=== PATIENT | female | born 1985 | race Caucasian/White ===

== ENCOUNTER 2018-02-01 17:33 | Emergency (ER) | payer MEDICAID ==
[~2018-02-01] VITALS: Ht 162.6 cm; Wt 63.6 kg
[~2018-02-01 17:33] MED LIST: NO HOME MEDS; ONDA8TAB9 PO
[2018-02-01 17:45] VITALS: BP 116/76
[2018-02-01] MEDS ORDERED: TOBR5DRO2 RIGHTEYE (18:25)
== END 2018-02-01 18:33 | disposition home or self-care (01) ==
LOC: ER 17:34
DX: H01.001 Unspecified blepharitis right upper eyelid (principal); H10.9 Unspecified conjunctivitis; G43.909 Migraine, unspecified, not intractable, without status migrainosus; Z86.14 Personal history of Methicillin resistant Staphylococcus aureus infection; F12.90 Cannabis use, unspecified, uncomplicated; Z91.030 Bee allergy status; Z79.899 Other long term (current) drug therapy; Z56.0 Unemployment, unspecified
CPT/HCPCS: 99283

== ENCOUNTER 2018-08-09 13:11 | Emergency (ER) | payer MEDICAID ==
[~2018-08-09] VITALS: Ht 162.6 cm; Wt 67.8 kg
[~2018-08-09 13:11] MED LIST changes: +IBUP-1985 PO; +TOBR5DRO2 RIGHTEYE
[2018-08-09 13:49] LABS: BASOPHILS % (AUTO) 0.3 % (0-1); EOSINOPHILS # (AUTO) 0.3 X10'3 (0-0.9); EOSINOPHILS % (AUTO) 2.4 % (0-6); HEMATOCRIT 35.9 % (35.0-45.0); HEMOGLOBIN 11.7 g/dl (12.0-16.0); LYMPHOCYTES # (AUTO) 1.9 X10'3 (1.1-4.8); LYMPHOCYTES % (AUTO) 15.7 % (21-51); MEAN CORPUSCULAR HEMOGLOBIN 26.1 PG (27.0-31.0); MEAN CORPUSCULAR HGB CONC 32.7 g/dL (33.0-36.5); MEAN CORPUSCULAR VOLUME 79.9 FL (78-98); MEAN PLATELET VOLUME 7.3 FL (7.4-10.4); MONOCYTES # (AUTO) 0.9 X10'3 (0-0.9); MONOCYTES % (AUTO) 7.1 % (2-12); NEUTROPHILS # (AUTO) 9.2 X10'3 (1.8-7.7); NEUTROPHILS % (AUTO) 74.5 % (42-75); PLATELET COUNT 569 X10'3 (140-440); RED BLOOD COUNT 4.49 X10'6 (4.20-5.60); RED CELL DISTRIBUTION WIDTH 16.5 % (11.5-14.5); WHITE BLOOD COUNT 12.3 X10'3 (4.5-11.0)
[2018-08-09 14:00] LABS: PROTHROMBIN TIME 10.2 SECONDS (9.0-12.0)
[2018-08-09 14:04] LABS: ALANINE AMINOTRANSFERASE 14 U/L (12-78); ALBUMIN 3.8 G/DL (3.4-5.0); ALBUMIN/GLOBULIN RATIO 0.9 (1.1-1.5); ALKALINE PHOSPHATASE 69 IU/L (46-116); ANION GAP 11 (8-16); ASPARTATE AMINO TRANSFERASE 10 U/L (10-37); BILIRUBIN,TOTAL 0.2 MG/DL (0.1-1.0); BLOOD UREA NITROGEN 13 MG/DL (7-18); BUN/CREATININE RATIO 17.1 (6.6-38.0); CHLORIDE 102 MMOL/L (99-107); CREATININE 0.76 MG/DL (0.40-0.90); GLUCOSE 98 MG/DL (70-104); POTASSIUM 3.7 MMOL/L (3.5-5.1); SODIUM 139 MMOL/L (135-145); TOTAL CARBON DIOXIDE 26.3 MMOL/L (24-32); TOTAL PROTEIN 7.9 G/DL (6.4-8.2); eGFR 88 ML/MIN
[2018-08-09 14:09] LABS: CLARITY,URINE SLIGHTLY CLOUDY (Clear); COLOR,URINE STRAW (Yellow); GLUCOSE, URINE NEGATIVE (Neg); KETONES,URINE NEGATIVE (Neg); LEUKOCYTE ESTERASE ,URINE MODERATE (Neg); NITRITES, URINE NEGATIVE (Neg); OCCULT BLOOD,URINE NEGATIVE (Neg); PROTEIN,URINE NEGATIVE (Neg); UA COLLECTION TYPE CLN CATCH MIDSTREAM; URINE HCG NEGATIVE (NEG); UROBILINOGEN,URINE 0.2 E.U/dL (0.2-1.0)
[2018-08-09 14:19] LABS: MUCUS STRANDS NONE SEEN /LPF (Neg); SQUAMOUS EPITHELIAL CELL,UR MANY /LPF (FEW); TRANSITIONAL EPI CELLS,URINE FEW /HPF
[2018-08-09 14:21] LABS: BACTERIA,URINE 3+ /HPF (Neg); RBC,URINE 0-2 /HPF (0-2)
[2018-08-09] MEDS ORDERED: ibuprofen 200mg tablet PO ONE (14:50)
[2018-08-09] MEDS ORDERED: HYDROcodone/acetaminophen 10/325mg tab PO ONE (14:50)
--- NOTE | 2018-08-09 15:43 | NUR ---
pelvic exam set up and assisted Dr. Shah with exam. Patient tolerated well.
[2018-08-09] MEDS ORDERED: METR-159 PO (16:35)
[2018-08-09] MEDS ORDERED: CefTRIAXone 250MG IM Kit w/LIDOcaine IM ONE (16:35)
[2018-08-09] MEDS ORDERED: ondansetron/PF 4mg/2ml inj IV ONE (16:35)
[2018-08-09] MEDS ORDERED: azithromycin 250mg tablet PO ONE (16:35)
[2018-08-09] MEDS ORDERED: SUMAtriptan succ. 6 MG/0.5ml vial SQ ONE (16:45)
[2018-08-09] MEDS ORDERED: ondansetron 4mg rapidly disintigrating tab PO ONE (17:00)
[2018-08-09 17:44] VITALS: BP 122/77
== END 2018-08-09 17:45 | disposition home or self-care (01) ==
LOC: ER 13:11
DX: N76.0 Acute vaginitis (principal); N72 Inflammatory disease of cervix uteri; G43.909 Migraine, unspecified, not intractable, without status migrainosus; F12.90 Cannabis use, unspecified, uncomplicated; F17.200 Nicotine dependence, unspecified, uncomplicated; Z56.0 Unemployment, unspecified; Z91.030 Bee allergy status
CPT/HCPCS: 36415; 80053; 81001; 81025; 85025; 85610; 87210; 87491; 87591; 96372; 99284; J0696; J3030

== ENCOUNTER 2019-02-18 11:41 | Emergency (ER) | payer MEDICAID ==
[~2019-02-18] VITALS: Ht 162.6 cm; Wt 61.1 kg
[2019-02-18 11:45] VITALS: BP 129/78
[2019-02-18 12:47] LABS: CLARITY,URINE CLOUDY (Clear); COLOR,URINE STRAW (Yellow); GLUCOSE, URINE NEGATIVE (Neg); KETONES,URINE NEGATIVE (Neg); LEUKOCYTE ESTERASE ,URINE LARGE (Neg); NITRITES, URINE NEGATIVE (Neg); OCCULT BLOOD,URINE SMALL (Neg); PROTEIN,URINE TRACE mg/dl (Neg); UROBILINOGEN,URINE 0.2 E.U/dL (0.2-1.0)
[2019-02-18 12:48] LABS: URINE HCG NEGATIVE (NEG)
[2019-02-18 13:04] LABS: UA COLLECTION TYPE CLN CATCH MIDSTREAM
[2019-02-18 13:11] LABS: BACTERIA,URINE 4+ /HPF (Neg); MUCUS STRANDS NONE SEEN /LPF (Neg); SQUAMOUS EPITHELIAL CELL,UR MODERATE /LPF (FEW); WBC CLUMPS,URINE MODERATE /HPF (NEGATIVE); WBC,URINE 50-100 /HPF (0-4)
[2019-02-18] MEDS ORDERED: azithromycin 250mg tablet PO ONE (13:20)
[2019-02-18] MEDS ORDERED: CefTRIAXone 250MG inj IM ONE (13:20)
[2019-02-18] MEDS ORDERED: CefTRIAXone 250MG IM Kit w/LIDOcaine IM ONE (13:25)
[2019-02-18] MEDS ORDERED: CEPH500C5 PO (13:34)
[2019-02-18] MEDS ORDERED: ONDA4TAB6 PO (13:34)
[2019-02-18] MEDS ORDERED: ACET-2119 PO (13:34)
[2019-02-18] MEDS ORDERED: CefTRIAXone 1000mg IM Kit (w/lidocaine diluent) IM ONE (13:35)
--- NOTE | 2019-02-18 14:45 | NUR ---
ASSISTED WITH PELVIC EXAM. WET MOUNT LABELED AND SENT TO LAB
--- NOTE | 2019-02-19 16:57 | NUR ---
MESSAGE LEFT WITH PT'S MOTHER TO CALL ER FOR LAB RESULTS AND NEW MEDICATION Addendum: 02/19/19 at 1730 by KIMBERLY PT RETURNED CALL AND NOTIFIED THAT AN ADDITIONAL MEDICATION WAS NEEDED FOR RESULTS OF CERVICAL SWAB. [facility] FLAGYL 500MG 1 PO QID X10 DAYS WAS CALLED INTO [facility], AT PT'S REQUEST
== END 2019-02-18 15:21 | disposition home or self-care (01) ==
LOC: ER 11:42
DX: N10 Acute pyelonephritis (principal); G43.909 Migraine, unspecified, not intractable, without status migrainosus; F32.9 Major depressive disorder, single episode, unspecified; F12.90 Cannabis use, unspecified, uncomplicated; F15.90 Other stimulant use, unspecified, uncomplicated; Z86.14 Personal history of Methicillin resistant Staphylococcus aureus infection; Z56.0 Unemployment, unspecified; Z98.890 Other specified postprocedural states; Z91.030 Bee allergy status; Z79.899 Other long term (current) drug therapy
CPT/HCPCS: 36415; 81001; 81025; 87077; 87088; 87186; 87210; 87491; 87591; 96372; 99283; J0696

== ENCOUNTER 2019-08-27 17:55 | Emergency (ER) | payer MEDICAID ==
[~2019-08-27] VITALS: Ht 162.6 cm; Wt 67.0 kg
[~2019-08-27 17:55] MED LIST changes: +CEPH500C5 PO; +ONDA4TAB6 PO
[2019-08-27 17:58] VITALS: BP 127/73
[2019-08-27] MEDS ORDERED: proCHLORperazine 10 MG/2 ml inj IM ONE (18:20)
[2019-08-27] MEDS ORDERED: diphenhydrAMINE 50 mg/ml inj IM ONE (18:20)
== END 2019-08-27 18:46 | disposition home or self-care (01) ==
LOC: ER 17:55
DX: G43.909 Migraine, unspecified, not intractable, without status migrainosus (principal); R11.10 Vomiting, unspecified; R50.9 Fever, unspecified; F32.9 Major depressive disorder, single episode, unspecified; F12.90 Cannabis use, unspecified, uncomplicated; F15.90 Other stimulant use, unspecified, uncomplicated; Z86.14 Personal history of Methicillin resistant Staphylococcus aureus infection; Z98.890 Other specified postprocedural states; Z56.0 Unemployment, unspecified; Z91.030 Bee allergy status; Z79.2 Long term (current) use of antibiotics; Z79.899 Other long term (current) drug therapy
CPT/HCPCS: 96372; 99284; J0780; J1200

== ENCOUNTER 2019-09-04 19:56 | Emergency (ER) | payer MEDICAID ==
[~2019-09-04] VITALS: Ht 170.2 cm; Wt 46.8 kg
[2019-09-04 20:03] VITALS: BP 141/87
[2019-09-04] MEDS ORDERED: proCHLORperazine 10mg tablet PO STA (20:08)
--- NOTE | 2019-09-04 20:09 | NUR ---
spoke to Dr Puente and he states I may order her compazine po. So done.
[2019-09-04] MEDS ORDERED: LIDOcaine 1% 30ml preserv. free vial IJ STA (22:07)
[2019-09-04] MEDS ORDERED: proCHLORperazine 10 MG/2 ml inj IV ONE (22:10)
[2019-09-04] MEDS ORDERED: diphenhydrAMINE 50 mg/ml inj IV ONE (22:10)
[2019-09-04] MEDS ORDERED: normal saline 1000ML IV soln IVB ONE (22:10)
--- NOTE | 2019-09-04 23:07 | NUR ---
PT AMBULATE TO RESTROOM WITHOUT COMPLICATION.
[2019-09-04] MEDS ORDERED: ketorolac tromethamine 15mg/ml inj. IV ONE (23:25)
[2019-09-04] MEDS ORDERED: acetaminophen 325mg tablet PO ONE (23:30)
--- NOTE | 2019-09-04 23:54 | NUR ---
pt given crackers and water for po challenge. now pt ambulating to restroom without complication.
== END 2019-09-05 00:05 | disposition home or self-care (01) ==
LOC: ER 19:57
DX: G43.909 Migraine, unspecified, not intractable, without status migrainosus (principal); R11.10 Vomiting, unspecified; F32.9 Major depressive disorder, single episode, unspecified; F12.90 Cannabis use, unspecified, uncomplicated; Z56.0 Unemployment, unspecified; Z87.59 Personal history of other complications of pregnancy, childbirth and the puerperium; Z86.14 Personal history of Methicillin resistant Staphylococcus aureus infection; Z88.8 Allergy status to other drugs, medicaments and biological substances; Z79.899 Other long term (current) drug therapy
CPT/HCPCS: 96361; 96374; 96375; 99284; J0780; J1200; J1885; J2001; J7030; Q0164

== ENCOUNTER 2020-11-09 08:01 | Emergency (ER) | payer MEDICAID ==
[~2020-11-09] VITALS: Ht 162.6 cm; Wt 68.0 kg
[~2020-11-09 08:01] MED LIST changes: -CEPH500C5 PO
[2020-11-09] MEDS ORDERED: dexamethasone sod phosphate 10mg/ml inj IV STA (08:37)
[2020-11-09] MEDS ORDERED: acetaminophen 325mg tablet PO STA (08:37)
[2020-11-09] MEDS ORDERED: ketorolac tromethamine 15mg/ml inj. IV ONE (08:40)
[2020-11-09] MEDS ORDERED: normal saline 1000ML IV soln IV ONE (08:40)
[2020-11-09 09:30] LABS: BASOPHILS # (AUTO) 0.1 X10'3 (0-0.2); BASOPHILS % (AUTO) 0.5 % (0-1); EOSINOPHILS % (AUTO) 0.1 % (0-6); HEMOGLOBIN 9.7 g/dl (12.0-16.0); LYMPHOCYTES # (AUTO) 0.7 X10'3 (1.1-4.8); LYMPHOCYTES % (AUTO) 3.2 % (21-51); MEAN CORPUSCULAR HEMOGLOBIN 23.4 PG (27.0-31.0); MEAN CORPUSCULAR HGB CONC 31.3 g/dL (33.0-36.5); MEAN CORPUSCULAR VOLUME 74.7 FL (78-98); MEAN PLATELET VOLUME 7.4 FL (7.4-10.4); MONOCYTES # (AUTO) 1.5 X10'3 (0-0.9); MONOCYTES % (AUTO) 7.1 % (2-12); NEUTROPHILS # (AUTO) 18.8 X10'3 (1.8-7.7); NEUTROPHILS % (AUTO) 89.1 % (42-75); PLATELET COUNT 409 X10'3 (140-440); RED BLOOD COUNT 4.15 X10'6 (4.20-5.60); RED CELL DISTRIBUTION WIDTH 15.8 % (11.5-14.5); WHITE BLOOD COUNT 21.1 X10'3 (4.5-11.0)
[2020-11-09 09:40] LABS: MONOTEST NEGATIVE (Neg)
[2020-11-09 09:44] LABS: ALANINE AMINOTRANSFERASE 18 U/L (12-78); ALBUMIN 3.8 G/DL (3.4-5.0); ALBUMIN/GLOBULIN RATIO 1.1 (1.1-1.5); ALKALINE PHOSPHATASE 69 IU/L (46-116); ANION GAP 11 (8-16); ASPARTATE AMINO TRANSFERASE 18 U/L (10-37); BILIRUBIN,TOTAL 0.3 MG/DL (0.1-1.0); BLOOD UREA NITROGEN 9 MG/DL (7-18); BUN/CREATININE RATIO 14.5 (6.6-38.0); CALCIUM 8.3 MG/DL (8.5-10.1); CHLORIDE 102 MMOL/L (99-107); CREATININE 0.62 MG/DL (0.40-0.90); GLUCOSE 109 MG/DL (70-104); POTASSIUM 3.3 MMOL/L (3.5-5.1); SODIUM 136 MMOL/L (135-145); TOTAL CARBON DIOXIDE 23.2 MMOL/L (24-32); TOTAL PROTEIN 7.3 G/DL (6.4-8.2); eGFR > 90 ML/MIN
[2020-11-09 10:07] LABS: CLARITY,URINE SLIGHTLY CLOUDY (Clear); COLOR,URINE YELLOW (Yellow); GLUCOSE, URINE NEGATIVE (Neg); KETONES,URINE 15 mg/dl (Neg); LEUKOCYTE ESTERASE ,URINE TRACE (Neg); NITRITES, URINE NEGATIVE (Neg); OCCULT BLOOD,URINE NEGATIVE (Neg); PROTEIN,URINE NEGATIVE (Neg); UA COLLECTION TYPE CLN CATCH MIDSTREAM; URINE HCG NEGATIVE (NEG); UROBILINOGEN,URINE 0.2 E.U/dL (0.2-1.0)
[2020-11-09] MEDS ORDERED: CefTRIAXone 2gm/D5W 50ml BAG 50 ML IV ONE (10:10)
[2020-11-09 10:20] LABS: BACTERIA,URINE 3+ /HPF (Neg); MUCUS STRANDS NONE SEEN /LPF (Neg); RBC,URINE NONE SEEN /HPF (0-2); SQUAMOUS EPITHELIAL CELL,UR MODERATE /LPF (FEW)
[2020-11-09 10:23] LABS: TOTAL CELLS COUNTED 100
[2020-11-09 10:24] LABS: ANISOCYTOSIS 1+; HYPOCHROMASIA 1+; MICROCYTOSIS 1+; PLATELET ESTIMATE NORMAL; POLYCHROMASIA 1+
[2020-11-09 10:25] LABS: URINE AMPHETAMINE SCREEN POSITIVE (Neg); URINE BARBITUATE SCREEN NEGATIVE (Neg); URINE BENZODIAZEPINES SCREEN NEGATIVE (Neg); URINE CANNABINOID SCREEN POSITIVE (Neg); URINE COCAINE SCREEN NEGATIVE (Neg); URINE METHADONE SCREEN NEGATIVE (Neg); URINE OPIATE SCREEN NEGATIVE (Neg); URINE PHENCYCLIDINE SCREEN NEGATIVE (Neg)
--- NOTE | 2020-11-09 10:33 | NUR ---
called pharmacy for abx stated will bring down.
[2020-11-09 10:46] VITALS: BP 108/73
[2020-11-09] MEDS ORDERED: CEPH250T PO (11:06)
[2020-11-09] MEDS ORDERED: NAPR-56 PO (11:06)
== END 2020-11-09 11:37 | disposition home or self-care (01) ==
LOC: ER 08:02
DX: N39.0 Urinary tract infection, site not specified (principal); Z20.822 Contact with and (suspected) exposure to COVID-19; J02.9 Acute pharyngitis, unspecified; R50.9 Fever, unspecified; R53.83 Other fatigue; R05 Cough; G43.909 Migraine, unspecified, not intractable, without status migrainosus; F32.9 Major depressive disorder, single episode, unspecified; F12.90 Cannabis use, unspecified, uncomplicated; F15.90 Other stimulant use, unspecified, uncomplicated; Z87.440 Personal history of urinary (tract) infections; Z86.14 Personal history of Methicillin resistant Staphylococcus aureus infection; Z98.890 Other specified postprocedural states; Z56.0 Unemployment, unspecified; Z91.030 Bee allergy status; Z79.2 Long term (current) use of antibiotics; Z79.899 Other long term (current) drug therapy
CPT/HCPCS: 36415; 71045; 74176; 80053; 80305; 81001; 81025; 83605; 84145; 85007; 85025; 86308; 87040; 87077; 87081; 87088; 87502; 87503; 87635; 87880; 93005; 96361; 96365; 96375; 99285; C9803; J0696; J1100; J1885; J7030

== ENCOUNTER 2021-05-01 08:51 | Emergency (ER) | payer MEDICAID ==
[~2021-05-01] VITALS: Ht 162.6 cm; Wt 68.2 kg
[2021-05-01 08:57] VITALS: BP 137/66
[2021-05-01] MEDS ORDERED: IBUP-1985 PO (09:46)
[2021-05-01] MEDS ORDERED: HYDR-3964 PO (09:46)
[2021-05-01] MEDS ORDERED: CLIN300C63 PO (09:46)
[2021-05-01] MEDS ORDERED: DOXY-411 PO (10:02)
== END 2021-05-01 10:24 | disposition home or self-care (01) ==
LOC: ER 08:52
DX: R23.8 Other skin changes (principal); G43.909 Migraine, unspecified, not intractable, without status migrainosus; F32.9 Major depressive disorder, single episode, unspecified; F12.90 Cannabis use, unspecified, uncomplicated; F15.90 Other stimulant use, unspecified, uncomplicated; Z86.14 Personal history of Methicillin resistant Staphylococcus aureus infection; Z87.440 Personal history of urinary (tract) infections; Z98.890 Other specified postprocedural states; Z56.0 Unemployment, unspecified; Z91.030 Bee allergy status; Z79.2 Long term (current) use of antibiotics; Z79.899 Other long term (current) drug therapy
CPT/HCPCS: 99283

== ENCOUNTER 2021-07-23 11:28 | Emergency (ER) | payer MEDICAID ==
[~2021-07-23] VITALS: Ht 162.6 cm; Wt 68.3 kg
[2021-07-23 11:50] VITALS: BP 170/53
[2021-07-23] MEDS ORDERED: CEPH250T PO (12:03)
== END 2021-07-23 12:22 | disposition home or self-care (01) ==
LOC: ER 11:28
DX: L03.011 Cellulitis of right finger (principal); G43.909 Migraine, unspecified, not intractable, without status migrainosus; F32.9 Major depressive disorder, single episode, unspecified; F12.90 Cannabis use, unspecified, uncomplicated; F15.90 Other stimulant use, unspecified, uncomplicated; Z87.440 Personal history of urinary (tract) infections; Z86.14 Personal history of Methicillin resistant Staphylococcus aureus infection; Z98.890 Other specified postprocedural states; Z91.030 Bee allergy status; Z79.2 Long term (current) use of antibiotics; Z79.899 Other long term (current) drug therapy
CPT/HCPCS: 99283

== ENCOUNTER 2021-08-28 00:14 | Emergency (ER) | payer MEDICAID ==
[~2021-08-28] VITALS: Ht 162.6 cm; Wt 68.1 kg
[2021-08-28 00:58] VITALS: BP 123/66
[2021-08-28] MEDS ORDERED: dexamethasone sod phosphate 10mg/ml inj IV STA (00:59)
[2021-08-28] MEDS ORDERED: SUMAtriptan succ. 6 MG/0.5ml vial SQ ONE (01:00)
[2021-08-28] MEDS ORDERED: proCHLORperazine 10 MG/2 ml inj IV ONE (01:00)
[2021-08-28] MEDS ORDERED: normal saline 1000ML IV soln IVB ONE (01:00)
[2021-08-28] MEDS ORDERED: diphenhydrAMINE 50 mg/ml inj IV ONE (01:00)
[2021-08-28] MEDS ORDERED: ketorolac tromethamine 15mg/ml inj. IV ONE (01:00)
[2021-08-28] MEDS ORDERED: PROC5TAB56 PO (01:38)
== END 2021-08-28 02:23 | disposition home or self-care (01) ==
LOC: ER 00:14
DX: G43.909 Migraine, unspecified, not intractable, without status migrainosus (principal); R11.0 Nausea; F32.A Depression, unspecified; F12.90 Cannabis use, unspecified, uncomplicated; F15.90 Other stimulant use, unspecified, uncomplicated; Z87.440 Personal history of urinary (tract) infections; Z86.14 Personal history of Methicillin resistant Staphylococcus aureus infection; Z98.890 Other specified postprocedural states; Z91.030 Bee allergy status; Z79.2 Long term (current) use of antibiotics; Z79.899 Other long term (current) drug therapy
CPT/HCPCS: 96372; 96374; 96375; 99284; J0780; J1100; J1200; J1885; J3030; J7030

== ENCOUNTER 2021-12-12 23:49 | Emergency (ER) | payer MEDICAID ==
[~2021-12-12 23:49] MED LIST changes: +PROC5TAB56 PO
== END 2021-12-13 00:58 | disposition left against medical advice (07) ==
LOC: ER 23:49
DX: N15.9 Renal tubulo-interstitial disease, unspecified (principal); Z53.21 Procedure and treatment not carried out due to patient leaving prior to being seen by health care provider

== ENCOUNTER 2022-06-03 04:47 | Emergency (ER) | payer MEDICAID ==
[~2022-06-03] VITALS: Ht 160 cm; Wt 65.9 kg
[2022-06-03 05:23] VITALS: BP 121/84
[2022-06-03 05:26] LABS: URINE HCG NEGATIVE (NEG)
[2022-06-03 06:26] LABS: BASOPHILS # (AUTO) 0.1 X10'3 (0-0.2); HEMOGLOBIN 14.1 g/dl (12.0-16.0); NEUTROPHILS # (AUTO) 7.2 X10'3 (1.8-7.7)
[2022-06-03 06:28] LABS: EOSINOPHILS % (AUTO) 0.4 % (0-6); HEMATOCRIT 41.9 % (35.0-45.0); LYMPHOCYTES # (AUTO) 2.1 X10'3 (1.1-4.8); LYMPHOCYTES % (AUTO) 20.2 % (21-51); MEAN CORPUSCULAR HEMOGLOBIN 29.5 PG (27.0-31.0); MEAN CORPUSCULAR HGB CONC 33.8 g/dL (33.0-36.5); MEAN CORPUSCULAR VOLUME 87.4 FL (78-98); MONOCYTES # (AUTO) 0.7 X10'3 (0-0.9); MONOCYTES % (AUTO) 7.2 % (2-12); NEUTROPHILS % (AUTO) 71.2 % (42-75); PLATELET COUNT 407 X10'3 (140-440); RED BLOOD COUNT 4.79 X10'6 (4.20-5.60); WHITE BLOOD COUNT 10.2 X10'3 (4.5-11.0)
[2022-06-03 06:38] LABS: ALANINE AMINOTRANSFERASE 27 U/L (12-78); ALBUMIN 3.9 G/DL (3.4-5.0); ALKALINE PHOSPHATASE 93 IU/L (46-116); ANION GAP 10 (8-16); ASPARTATE AMINO TRANSFERASE 38 U/L (10-37); BILIRUBIN,TOTAL 0.5 MG/DL (0.1-1.0); BLOOD UREA NITROGEN 11 MG/DL (7-18); BUN/CREATININE RATIO 14.9 (6.6-38.0); CALCIUM 9.1 MG/DL (8.5-10.1); CHLORIDE 99 MMOL/L (99-107); CREATININE 0.74 MG/DL (0.40-0.90); GLUCOSE 104 MG/DL (70-104); POTASSIUM 3.8 MMOL/L (3.5-5.1); SODIUM 137 MMOL/L (135-145); TOTAL CARBON DIOXIDE 27.9 MMOL/L (24-32); TOTAL PROTEIN 7.7 G/DL (6.4-8.2); eGFR 89 ML/MIN
[2022-06-03] MEDS ORDERED: iohexol 300mg/ml 100ml inj. ONE (07:23)
[2022-06-03] MEDS ORDERED: diphenhydrAMINE 50 mg/ml inj IV ONE ×2 (07:35→08:10)
[2022-06-03] MEDS ORDERED: acetaminophen 325mg tablet PO ONE (07:40)
[2022-06-03] MEDS ORDERED: diphenhydrAMINE 25mg capsule PO ONE (08:00)
--- NOTE | 2022-06-03 08:31 | NUR ---
pt handed off to me, RPJoe was at bedside at pt was in custody but they advised me they would be releasing her from custody. pt had CT with contrast ordered along with order for IV benadryl. Pt advised we needed to place an IV to admin the benadryl secondary to her stated (but not documented at the time) allergy to shellfish - pt then stated that she didn't want the IV or to have a contrast study. she stated she would do the CT but not with contrast. before being able to examine pt she asked to use the restroom and was escorted to nearest restroom. steady gait observed. pt was checked arrpox 3 minutes later and no longer in restroom. MD josefina notified.
--- NOTE | 2022-06-03 08:38 | NUR ---
order for CT cancelled per request of loom technician - pt MD josefina aware
[2022-06-03 10:52] LABS: URINE AMPHETAMINE SCREEN POSITIVE (Neg); URINE BARBITUATE SCREEN NEGATIVE (Neg); URINE BENZODIAZEPINES SCREEN NEGATIVE (Neg); URINE CANNABINOID SCREEN POSITIVE (Neg); URINE COCAINE SCREEN NEGATIVE (Neg); URINE METHADONE SCREEN NEGATIVE (Neg); URINE OPIATE SCREEN NEGATIVE (Neg); URINE PHENCYCLIDINE SCREEN NEGATIVE (Neg)
== END 2022-06-03 09:21 | disposition left against medical advice (07) ==
LOC: ER 04:47
DX: Z02.89 Encounter for other administrative examinations (principal); M54.2 Cervicalgia; M54.50 Low back pain, unspecified; G43.909 Migraine, unspecified, not intractable, without status migrainosus; G89.29 Other chronic pain; F32.A Depression, unspecified; F12.90 Cannabis use, unspecified, uncomplicated; F15.90 Other stimulant use, unspecified, uncomplicated; Z87.440 Personal history of urinary (tract) infections; Z86.14 Personal history of Methicillin resistant Staphylococcus aureus infection; Z98.890 Other specified postprocedural states; Z91.030 Bee allergy status; Z79.2 Long term (current) use of antibiotics; Z79.899 Other long term (current) drug therapy
CPT/HCPCS: 80053; 80305; 81025; 83605; 85025; 87040; 99283; A4353; J3490; Q9967

== ENCOUNTER 2022-07-27 14:01 | Emergency (ER) | payer MEDICAID ==
[~2022-07-27] VITALS: Ht 162.6 cm; Wt 68.0 kg
[2022-07-27 14:23] LABS: BASOPHILS % (AUTO) 0.3 % (0-1); EOSINOPHILS # (AUTO) 0.1 X10'3 (0-0.9); HEMATOCRIT 41.4 % (35.0-45.0); LYMPHOCYTES # (AUTO) 0.9 X10'3 (1.1-4.8); MEAN CORPUSCULAR HEMOGLOBIN 24.6 PG (27.0-31.0); MEAN CORPUSCULAR HGB CONC 31.4 g/dL (33.0-36.5); MEAN CORPUSCULAR VOLUME 78.3 FL (78-98); MEAN PLATELET VOLUME 7.1 FL (7.4-10.4); MONOCYTES % (AUTO) 6.7 % (2-12); NEUTROPHILS # (AUTO) 12.3 X10'3 (1.8-7.7); PLATELET COUNT 387 X10'3 (140-440); RED BLOOD COUNT 5.28 X10'6 (4.20-5.60); RED CELL DISTRIBUTION WIDTH 17.1 % (11.5-14.5); WHITE BLOOD COUNT 14.4 X10'3 (4.5-11.0)
[2022-07-27 14:29] LABS: CLARITY,URINE SLIGHTLY CLOUDY (Clear); COLOR,URINE YELLOW (Yellow); GLUCOSE, URINE NEGATIVE (Neg); KETONES,URINE TRACE mg/dl (Neg); LEUKOCYTE ESTERASE ,URINE NEGATIVE (Neg); NITRITES, URINE NEGATIVE (Neg); OCCULT BLOOD,URINE NEGATIVE (Neg); PH,URINE 5.5 (4.8-8.0); PROTEIN,URINE NEGATIVE (Neg); UROBILINOGEN,URINE 0.2 E.U/dL (0.2-1.0)
[2022-07-27 14:31] LABS: UA COLLECTION TYPE CLN CATCH MIDSTREAM
[2022-07-27 14:35] LABS: BACTERIA,URINE FEW /HPF (Neg); MUCUS STRANDS FEW /LPF (Neg); RBC,URINE NONE SEEN /HPF (0-2); SQUAMOUS EPITHELIAL CELL,UR MANY /LPF (FEW); URINE HCG NEGATIVE (NEG); WBC,URINE 0-4 /HPF (0-4)
[2022-07-27 14:39] LABS: ALANINE AMINOTRANSFERASE 22 U/L (12-78); ALBUMIN 4.1 G/DL (3.4-5.0); ALBUMIN/GLOBULIN RATIO 1.1 (1.1-1.5); ALKALINE PHOSPHATASE 69 IU/L (46-116); ANION GAP 6 (8-16); ASPARTATE AMINO TRANSFERASE 19 U/L (10-37); BILIRUBIN,TOTAL 0.5 MG/DL (0.1-1.0); BLOOD UREA NITROGEN 11 MG/DL (7-18); BUN/CREATININE RATIO 13.8 (6.6-38.0); CALCIUM 8.5 MG/DL (8.5-10.1); CHLORIDE 103 MMOL/L (99-107); GLUCOSE 85 MG/DL (70-104); LIPASE 87 U/L (73-393); SODIUM 134 MMOL/L (135-145); TOTAL CARBON DIOXIDE 25.1 MMOL/L (24-32); TOTAL PROTEIN 7.7 G/DL (6.4-8.2); eGFR 81 ML/MIN
[2022-07-27] MEDS ORDERED: morphine 4 MG/ML inj SYRINge IV ONE ×2 (15:35→20:35)
[2022-07-27] MEDS ORDERED: normal saline 1000ML IV soln IVB ONE (15:35)
[2022-07-27] MEDS ORDERED: iohexol 300mg/ml 100ml inj. ONE (15:47)
--- NOTE | 2022-07-27 15:57 | NUR ---
Urine obtained before placed in exam room.
[2022-07-27 16:25] VITALS: BP 126/78
[2022-07-27] MEDS ORDERED: morphine 2 MG/ML inj. syringe IV ONE (17:30)
--- NOTE | 2022-07-27 17:38 | NUR ---
I AGREE WITH THE GENERAL ASSESSMENT PER VENKAT LEA LVN.
[2022-07-27 18:54] LABS: BASOPHILS # (AUTO) 0.1 X10'3 (0-0.2); BASOPHILS % (AUTO) 0.4 % (0-1); EOSINOPHILS # (AUTO) 0.1 X10'3 (0-0.9); HEMOGLOBIN 11.7 g/dl (12.0-16.0); LYMPHOCYTES # (AUTO) 0.9 X10'3 (1.1-4.8); LYMPHOCYTES % (AUTO) 7.1 % (21-51); MEAN CORPUSCULAR HEMOGLOBIN 25.2 PG (27.0-31.0); MEAN CORPUSCULAR HGB CONC 32.5 g/dL (33.0-36.5); MEAN CORPUSCULAR VOLUME 77.6 FL (78-98); MEAN PLATELET VOLUME 7.1 FL (7.4-10.4); MONOCYTES # (AUTO) 0.7 X10'3 (0-0.9); MONOCYTES % (AUTO) 5.6 % (2-12); NEUTROPHILS # (AUTO) 11.2 X10'3 (1.8-7.7); NEUTROPHILS % (AUTO) 85.9 % (42-75); PLATELET COUNT 351 X10'3 (140-440); RED BLOOD COUNT 4.63 X10'6 (4.20-5.60)
[2022-07-27 19:07] LABS: ALANINE AMINOTRANSFERASE 21 U/L (12-78); ALBUMIN 3.5 G/DL (3.4-5.0); ALBUMIN/GLOBULIN RATIO 1.1 (1.1-1.5); ALKALINE PHOSPHATASE 58 IU/L (46-116); ANION GAP 6 (8-16); ASPARTATE AMINO TRANSFERASE 13 U/L (10-37); BILIRUBIN,TOTAL 0.4 MG/DL (0.1-1.0); BLOOD UREA NITROGEN 9 MG/DL (7-18); BUN/CREATININE RATIO 12.5 (6.6-38.0); CALCIUM 7.8 MG/DL (8.5-10.1); CHLORIDE 104 MMOL/L (99-107); CREATININE 0.72 MG/DL (0.40-0.90); GLUCOSE 100 MG/DL (70-104); POTASSIUM 3.9 MMOL/L (3.5-5.1); SODIUM 133 MMOL/L (135-145); TOTAL PROTEIN 6.6 G/DL (6.4-8.2); eGFR > 90 ML/MIN
[2022-07-27] MEDS ORDERED: ketorolac trometh. 30mg/ml inj. IV ONE (20:35)
--- NOTE | 2022-07-27 20:52 | NUR ---
ivp x2 given by rn
--- NOTE | 2022-07-27 21:07 | NUR ---
IV DC'D PT BEING DISCHARGED DRESSING APPLIED
== END 2022-07-27 21:08 | disposition home or self-care (01) ==
LOC: ER 14:02
DX: N83.202 Unspecified ovarian cyst, left side (principal); M54.50 Low back pain, unspecified; R19.7 Diarrhea, unspecified; G43.909 Migraine, unspecified, not intractable, without status migrainosus; G89.29 Other chronic pain; F32.9 Major depressive disorder, single episode, unspecified; F17.200 Nicotine dependence, unspecified, uncomplicated; F12.90 Cannabis use, unspecified, uncomplicated; F15.90 Other stimulant use, unspecified, uncomplicated; Z98.890 Other specified postprocedural states; Z86.14 Personal history of Methicillin resistant Staphylococcus aureus infection; Z88.0 Allergy status to penicillin; Z91.013 Allergy to seafood; Z91.030 Bee allergy status; Z79.899 Other long term (current) drug therapy
CPT/HCPCS: 36415; 74177; 76856; 80053; 81001; 81025; 83690; 85025; 93976; 96361; 96374; 96375; 96376; 99285; J1885; J2270; J3490; J7030; Q9967

== ENCOUNTER 2023-11-29 13:07 | Emergency (ER) | payer MEDICAID ==
[~2023-11-29] VITALS: Ht 162.6 cm; Wt 74.7 kg
[2023-11-29 13:11] VITALS: TEMP 98.6
[2023-11-29 13:35] VITALS: BP 120/81; PULSE 95; RESP 16; O2SAT 98
[2023-11-29] MEDS ORDERED: EPIN0.3P3 IM (13:50)
[2023-11-29] MEDS: diphenhydrAMINE 25mg capsule PO ONE (14:07)
== END 2023-11-29 14:15 | disposition home or self-care (01) ==
LOC: ER 13:07
DX: T63.441A Toxic effect of venom of bees, accidental (unintentional), initial encounter (principal); Z88.0 Allergy status to penicillin; Z91.013 Allergy to seafood; G89.29 Other chronic pain; M54.9 Dorsalgia, unspecified; F32.A Depression, unspecified; F12.90 Cannabis use, unspecified, uncomplicated; F15.90 Other stimulant use, unspecified, uncomplicated; G43.909 Migraine, unspecified, not intractable, without status migrainosus; Y92.89 Other specified places as the place of occurrence of the external cause; Z79.899 Other long term (current) drug therapy; Z72.89 Other problems related to lifestyle; Z79.1 Long term (current) use of non-steroidal anti-inflammatories (NSAID)
CPT/HCPCS: 99282; Q0163

== ENCOUNTER 2024-03-10 12:12 | Emergency (ER) | payer MEDICAID ==
[~2024-03-10] VITALS: Ht 162.6 cm; Wt 72.7 kg
[~2024-03-10 12:12] MED LIST changes: +EPIN0.3P3 IM
[2024-03-10 12:15] VITALS: TEMP 99.9
[2024-03-10] MEDS: normal saline 1000ml 1,000 ML IV ONE (14:51)
[2024-03-10 14:55] LABS: SYPHILIS SCREENING TEST POC NEGATIVE (Negative)
[2024-03-10] MEDS: ketorolac trometh 30MG/ML vial 30 MG/ML VIAL IV ONE (14:55)
[2024-03-10] MEDS: ondansetron/PF 4mg/2ml inj IV ONE (14:55)
[2024-03-10 14:59] LABS: BASOPHILS % (AUTO) 0.5 % (0-1); EOSINOPHILS # (AUTO) 0.1 X10'3 (0-0.9); EOSINOPHILS % (AUTO) 1.1 % (0-6); HEMATOCRIT 38.8 % (35.0-45.0); HEMOGLOBIN 12.8 g/dl (12.0-16.0); LYMPHOCYTES # (AUTO) 0.4 X10'3 (1.1-4.8); LYMPHOCYTES % (AUTO) 4.3 % (21-51); MEAN CORPUSCULAR HEMOGLOBIN 27.3 PG (27.0-31.0); MEAN CORPUSCULAR HGB CONC 32.9 g/dL (33.0-36.5); MEAN CORPUSCULAR VOLUME 82.9 FL (78-98); MONOCYTES # (AUTO) 1.4 X10'3 (0-0.9); MONOCYTES % (AUTO) 15.6 % (2-12); NEUTROPHILS % (AUTO) 78.5 % (42-75); PLATELET COUNT 345 X10'3 (140-440); RED BLOOD COUNT 4.68 X10'6 (4.20-5.60); WHITE BLOOD COUNT 8.9 X10'3 (4.5-11.0)
[2024-03-10 15:01] LABS: ALBUMIN 3.9 G/DL (3.4-5.0); ANION GAP 8 (8-16); BLOOD UREA NITROGEN 9 MG/DL (7-18); CALCIUM 8.9 MG/DL (8.5-10.1); CHLORIDE 101 MMOL/L (99-107); CREATININE 0.75 MG/DL (0.40-0.90); GLUCOSE 109 MG/DL (70-104); POTASSIUM 3.9 MMOL/L (3.5-5.1); SODIUM 133 MMOL/L (135-145); TOTAL CARBON DIOXIDE 24.1 MMOL/L (24-32); eCRCL 88 ML/MIN; eGFR 86 ML/MIN
[2024-03-10 15:02] LABS: BILIRUBIN,URINE NEGATIVE (Neg); CLARITY,URINE SLIGHTLY CLOUDY (Clear); COLOR,URINE YELLOW (Yellow); GLUCOSE, URINE NEGATIVE (Neg); KETONES,URINE NEGATIVE (Neg); LEUKOCYTE ESTERASE ,URINE NEGATIVE (Neg); NITRITES, URINE NEGATIVE (Neg); OCCULT BLOOD,URINE LARGE (Neg); PH,URINE 7.5 (4.8-8.0); PROTEIN,URINE TRACE mg/dl (Neg); UROBILINOGEN,URINE 0.2 E.U/dL (0.2-1.0)
[2024-03-10 15:03] LABS: URINE HCG NEGATIVE (NEG)
[2024-03-10 15:23] LABS: UA COLLECTION TYPE CLN CATCH MIDSTREAM
[2024-03-10 15:25] LABS: RBC,URINE TNTC /HPF (0-2); SQUAMOUS EPITHELIAL CELL,UR FEW /LPF (FEW)
[2024-03-10 15:26] LABS: BACTERIA,URINE FEW /HPF (Neg)
[2024-03-10] MEDS: HYDROcodone/acetaminophen 5mg/325mg tablet PO ONE (15:57)
[2024-03-10] MEDS: CefTRIAXone 2gm/D5W 50ml BAG 50 ML IV ONE (15:57)
[2024-03-10] MEDS ORDERED: FLUC150T22 PO (16:38)
[2024-03-10] MEDS ORDERED: SULF1TAB49 PO (16:38)
[2024-03-10] MEDS ORDERED: NAPR-56 PO (16:41)
[2024-03-10] MEDS ORDERED: ONDA-245 PO (16:41)
[2024-03-10] MEDS ORDERED: NIRM1TAB9 PO (16:46)
[2024-03-10 17:21] VITALS: BP 130/78; PULSE 78; RESP 16; O2SAT 98
[2024-03-10 17:50] LABS: URINE AMPHETAMINE SCREEN POSITIVE (Neg); URINE BARBITUATE SCREEN NEGATIVE (Neg); URINE BENZODIAZEPINES SCREEN NEGATIVE (Neg); URINE CANNABINOID SCREEN POSITIVE (Neg); URINE COCAINE SCREEN NEGATIVE (Neg); URINE METHADONE SCREEN NEGATIVE (Neg); URINE OPIATE SCREEN NEGATIVE (Neg); URINE PHENCYCLIDINE SCREEN NEGATIVE (Neg)
[2024-03-13 05:13] LABS: CHLAMYDIA TRACHOMATIS, NAA Negative (Negative)
== END 2024-03-10 17:23 | disposition home or self-care (01) ==
LOC: ER 12:13
DX: U07.1 COVID-19 (principal); G43.909 Migraine, unspecified, not intractable, without status migrainosus; G89.29 Other chronic pain; M54.9 Dorsalgia, unspecified; F32.A Depression, unspecified; F12.90 Cannabis use, unspecified, uncomplicated; F15.90 Other stimulant use, unspecified, uncomplicated; Z91.030 Bee allergy status; Z88.0 Allergy status to penicillin; Z91.013 Allergy to seafood; Z79.899 Other long term (current) drug therapy; Z79.1 Long term (current) use of non-steroidal anti-inflammatories (NSAID); Z72.89 Other problems related to lifestyle; Z98.890 Other specified postprocedural states
CPT/HCPCS: 36415; 80048; 80305; 81001; 81025; 83605; 84145; 85025; 87040; 87088; 87491; 87591; 87811; 96361; 96365; 96375; 99285; J0696; J1885; J2405; J7030

== ENCOUNTER 2024-12-27 00:38 | Emergency (ER) | payer MEDICAID ==
[~2024-12-27] VITALS: Ht 162.6 cm; Wt 80.5 kg
[~2024-12-27 00:38] MED LIST changes: +NIRM1TAB9 PO; +ONDA-243 PO; +ONDA-245 PO
[2024-12-27 00:45] VITALS: TEMP 97.5
--- NOTE | 2024-12-27 00:58 | Physician Documentation ---
History of Present Illness ~ Chief Complaint: Headache Stated Complaint: MIGRAINE Time Seen by MD: 00:56 Primary Medical Doctor: N/A HPI Patient presents to the emergency room for evaluation of headache times six days. She reports that this is a migraine and she has had many before and this feels like a migraine. No fevers. Using ibuprofen and Tylenol with limited benefit. Positive photophobia Medication Reconciliation Allergies: Coded Allergies: venom-honey bee (Unverified Allergy, Unknown, 12/27/24) Scheduled Epinephrine (Epipen 2-Kvng), 1 SYR IM ONCE Ibuprofen (Ibuprofen), 1 TAB PO Q8H Nirmatrelvir/Ritonavir (Paxlovid 300-100 mg Dose Pack), 3 TAB PO BID ONDANSETRON ODT 4mg tablet (Ondansetron Odt), 8 MG PO BID Ondansetron (Zofran Odt), 1 TABLET PO Q8H Ondansetron Hcl (Zofran), 1 TAB PO Q6H PRN Tobramycin Sulfate/Dexameth (Tobradex Eye Drops), 1 DROP RIGHTEYE Q6H Scheduled PRN Ibuprofen (Ibuprofen), 1 TAB PO Q6H PRN PRN for pain Ibuprofen (Ibuprofen), 1 TAB PO Q6H PRN for pain Ondansetron 8mg ODT (Ondansetron Odt), 1 TAB PO TID PRN for nausea/vomiting Prochlorperazine Maleate (Compazine), 1 TAB PO Q6H PRN PRN for headache Miscellaneous Medications Home Med List (No Home Medications), (Reported) Past Medical History Past Medical History: Headache, Migraine, UTI, Chronic Back Pain, MRSA Abscess, Depression Past Surgical History: , orthopedic surgeries Other Past Family History: none Alcohol Use: Occasionally Drug Use: marijuana, methamphetamine Lives with: Family Lives In: Home Occupation: employed Review of Systems ROS All review of systems negative except as per HPI Physical Exam Vital Signs: Temperature: 97.5, Source: Temporal, Heart Rate: 96, Respiratory Rate: 16, BP: 135/90, Pulse Oximetry: 100, Weight: 80.450 Oxygen Flow Rate: 0 Physical Exam General: Patient is awake, alert, oriented x4 in mild distress Head: Normocephalic and atraumatic. Eyes: Conjunctival normal. EOMI. PERRL. ENT: Mucous membranes moist. Neck: Supple, trachea is midline. Chest: Clear to auscultation bilaterally without rales, rhonchi, or wheezes. There is no accessory muscle use or retractions. Cardiac: RRR without murmurs, gallops, or rubs. Neuro: Cranial nerves II-XII grossly intact. No focal neuro deficits. Progress Results/Orders Results/Orders Completed Orders - SAM BHATT MD Normal Saline 1000ml (Sodium Chloride 10 (12/27/24 01:05) Acetaminophen 1,000mg/100ml Iv (Ofirmev (12/27/24 01:05) Diphenhydramine Inj (Benadryl Inj.) (12/27/24 01:05) Prochlorperazine Inj (Compazine Inj) (12/27/24 01:05) Metoclopramide Inj (Reglan Inj) (12/27/24 01:05) Medications Received in ER Medications (Trade) Dose Ordered Sig/Sofiya Route PRN Reason Start Time Stop Time Status Last Admin Dose Admin Sodium Chloride 1,000 ml @ 1,000 mls/hr ONCE ONCE IV 12/27/24 01:05 12/27/24 02:04 DC 12/27/24 01:52 1,000 MLS/HR Acetaminophen 100 ml @ 400 mls/hr ONCE ONCE IV 12/27/24 01:05 12/27/24 01:19 DC 12/27/24 01:50 400 MLS/HR (Benadryl inj.) 50 mg ONCE ONCE IV 12/27/24 01:05 12/27/24 01:06 DC 12/27/24 01:48 50 MG (Compazine inj) 5 mg ONCE ONCE IV 12/27/24 01:05 12/27/24 01:06 DC 12/27/24 01:46 5 MG (Reglan inj) 5 mg ONCE ONCE IV 12/27/24 01:05 12/27/24 01:16 DC 12/27/24 01:48 5 MG Vital Signs 12/27/24 00:45 Temp 97.5 Pulse 96 Resp 16 B/P (MAP) 135/90 Pulse Ox 100 O2 Flow Rate 0 Medical Decision Making Findings Patient presents to the emergency room for evaluation of headache. Differentials include but are not limited to meningitis, intracranial bleed, tension headache, migraine headache. Given patient's history we will empirically treated for migraine headache and she has responded to therapy. I do not feel she requires emergent imaging as he had not suspect intracranial bleed or meningitis. Departure Disposition: HOME / SELF CARE / HOMELESS Impression: Primary Impression: Migraine Condition: Improved Discharge Instructions: Migraine Headache Referrals: NO PRIMARY CARE PROVIDER (PCP) Signature Scribe Signature: No scribe Attestation: The note accurately reflects work and decisions made by me.Sam Bhatt MD 12/27/24 02:38 SAM BHATT MD Dec 27, 2024 00:58
[2024-12-27] MEDS: metoclopramide 5 mg/ml inj IV ONE (01:48)
[2024-12-27] MEDS: acetaminophen 1,000mg/100ml IV 100 ML IV ONE (01:50)
[2024-12-27] MEDS: normal saline 1000ml 1,000 ML IV ONE (01:52)
[2024-12-27 03:03] VITALS: BP 101/59; PULSE 102; RESP 14; O2SAT 100
== END 2024-12-27 03:08 | disposition home or self-care (01) ==
LOC: ER 00:39
DX: G43.909 Migraine, unspecified, not intractable, without status migrainosus (principal); F32.A Depression, unspecified; F12.90 Cannabis use, unspecified, uncomplicated; F15.90 Other stimulant use, unspecified, uncomplicated; Z72.89 Other problems related to lifestyle; Z91.030 Bee allergy status; Z79.899 Other long term (current) drug therapy
CPT/HCPCS: 96365; 96375; 96376; 99284; J0131; J0780; J1200; J2765; J7030

== ENCOUNTER 2025-02-03 11:24 | Emergency (ER) | payer MEDICAID ==
[~2025-02-03] VITALS: Ht 162.6 cm; Wt 81.8 kg
[2025-02-03 11:49] LABS: LEUKOCYTE ESTERASE ,URINE NEGATIVE (Neg); NITRITES, URINE NEGATIVE (Neg); OCCULT BLOOD,URINE NEGATIVE (Neg)
[2025-02-03 11:54] LABS: UA COLLECTION TYPE CLN CATCH MIDSTREAM
[2025-02-03 12:01] LABS: URINE HCG NEGATIVE (NEG)
[2025-02-03 12:29] LABS: MUCUS STRANDS FEW /LPF (Neg); SQUAMOUS EPITHELIAL CELL,UR MANY /LPF (FEW)
[2025-02-03] MEDS ORDERED: TRAM50TA2 PO (13:08)
--- NOTE | 2025-02-03 13:08 | Physician Documentation ---
History of Present Illness ~ Chief Complaint: Flank Pain Stated Complaint: KIDNEY PAIN Time Seen by MD: 12:05 OK to notify your PCP?: Yes Primary Medical Doctor: mis dee Source: patient Mode of Arrival: POV Exam Limitations: no limitations HPI 39-year-old female who is here with mid and lower back pain which started two days ago. No precipitating injury or event. No history of back problems. She states that the pain has been constant she has been taking NSAIDs without any relief. She is hoping she can get something stronger than an NSAID for her pain. She was wondering if her pain could be due to a kidney infection. She states the pain makes her want to reach her arms overhead and stretch out her back this actually helps her pain. She has not identified anything that makes her pain worse. No fever, chills, nausea or vomiting, diarrhea, constipation, blood in urine, pain with urination. Medication Reconciliation Allergies: Coded Allergies: venom-honey bee (Unverified Allergy, Unknown, 12/27/24) Scheduled Epinephrine (Epipen 2-Kvng), 1 SYR IM ONCE Ibuprofen (Ibuprofen), 1 TAB PO Q8H Nirmatrelvir/Ritonavir (Paxlovid 300-100 mg Dose Pack), 3 TAB PO BID ONDANSETRON ODT 4mg tablet (Ondansetron Odt), 8 MG PO BID Ondansetron (Zofran Odt), 1 TABLET PO Q8H Ondansetron Hcl (Zofran), 1 TAB PO Q6H PRN Tobramycin Sulfate/Dexameth (Tobradex Eye Drops), 1 DROP RIGHTEYE Q6H Scheduled PRN Ibuprofen (Ibuprofen), 1 TAB PO Q6H PRN PRN for pain Ibuprofen (Ibuprofen), 1 TAB PO Q6H PRN for pain Ondansetron 8mg ODT (Ondansetron Odt), 1 TAB PO TID PRN for nausea/vomiting Prochlorperazine Maleate (Compazine), 1 TAB PO Q6H PRN PRN for headache Miscellaneous Medications Home Med List (No Home Medications), (Reported) Past Medical History Past Medical History: Headache, Migraine, UTI, Chronic Back Pain, MRSA Abscess, Depression Past Surgical History: , orthopedic surgeries Other Past Family History: none Alcohol Use: Occasionally Drug Use: marijuana, methamphetamine Lives with: Family Lives In: Home Occupation: employed Review of Systems All Other Systems at this time: Reviewed and Negative Physical Exam Physical Exam Vital Signs: Temperature: 98.8, Source: Oral, Heart Rate: 97, Respiratory Rate: 16, BP: 135/87, Pulse Oximetry: 100, Weight: 81.800 Oxygen Flow Rate: 0 Physical Exam GENERAL: Alert, no acute distress. HEENT: NCAT, EOMI, PERRL, normal oropharynx, moist oral mucosa. NECK: Supple, trachea midline. CARDIAC: Regular rate and rhythm, no murmurs, rubs, or gallops. PV: Equal distal pulses. No lower extremity edema, cap refill less than 2 seconds. RESPIRATORY: Equal breath sounds, clear to auscultation bilaterally, no respiratory distress. GASTROINTESTINAL: Non distended, soft, nontender, No guarding or rebound. BACK: TENDERNESS OVER THE PARASPINAL MUSCLES OF THE THORACIC AND LUMBAR SPINE, NO MIDLINE TENDERNESS. GOES FROM A SEATED TO A STANDING POSITION AND BACK DOWN TO SUPINE POSITION WITHOUT EVIDENCE OF DIFFICULTY OR PAIN. NO CVA TTP. NEUROLOGICAL: Awake, alert, and oriented x 3. SKIN: Warm/dry, no pallor, no rash. PSYCH: Alert and appropriate. Affect congruent with mood. Speech is clear. Good eye contact. Progress Results/Orders Results/Orders Orders - NATALI PERRY Tramadol Tablet (Ultram Tablet) (02/03/25 13:05) Vital Signs 02/03/25 11:26 Temp 98.8 Pulse 97 Resp 16 B/P (MAP) 135/87 Pulse Ox 100 O2 Flow Rate 0 Laboratory Tests Test 02/03/25 11:29 Urine Specimen Description Cln catch midstream Urine Color Yellow Urine Clarity Slightly cloudy Urine pH 6.0 Urine Specific [place] >=1.030 Urine Protein Negative Urine Glucose (UA) Negative Urine Ketones Negative Urine Occult Blood Negative Urine Nitrite Negative Urine Bilirubin Negative Urine Urobilinogen 0.2 Urine Leukocyte Esterase Negative Urine RBC 0-2 Urine WBC 0-4 Urine Squamous Epithelial Cells Many Urine Bacteria Few Urine Mucus Few Urine Culture Indicated Not ind Volume Urine Centrifuged 10 ml Urine HCG, Qualitative Negative Urine Comment Medical Decision Making Differential Dx:Considerations: Include: AAA, Aortic dissection, , Appendicitis, Bowel obstruction, Cholelithiasis, Cholangitis, DJD, Ectopic , Fracture, Hepatitis, HNP, Musculoskeletal pain, Pancreatitis, Pyelo nephritis, Strain, Urinary obstruction, Urolithiasis, Ovarian torsion Departure Time of Disposition: 13:03 Disposition: 01 HOME / SELF CARE / HOMELESS Impression: Primary Impression: Low back pain Qualified Codes: M54.50 - Low back pain, unspecified Additional Impression: Mid back pain Condition: Stable Discharge Instructions: Lumbosacral Strain Additional Instructions: YOUR URINE TEST WAS NORMAL TEST NORMAL YOUR SYMPTOMS AND FINDINGS ON EXAM ARE CONSISTENT WITH THORACIC AND LUMBAR ETIOLOGY WE MUTUALLY AGREED IMAGING STUDIES IN THE ER WHERE NOT INDICATED GIVEN LACK OF PRECIPITATING TRAUMA OR EVENT F/U WITH PCP IN 1-2WEEKS Referrals: NO PRIMARY CARE PROVIDER (PCP) Prescriptions Tramadol HCl (Tramadol HCl) 50 Mg Tablet 1 TAB PO TID PRN PRN for pain for 4 Days, #12 TAB DX: BACK PAIN M54.00 Prov: NATALI PERRY 02/03/25 Education Educated: Patient Educated regarding: diagnosis, treatment, need for follow up Signature Scribe Signature: X Attestation: NATALI HENSON Feb 03, 2025 13:08
[2025-02-03 13:15] VITALS: BP 123/77; PULSE 70; RESP 16; TEMP 97.9; O2SAT 99
== END 2025-02-03 13:16 | disposition home or self-care (01) ==
LOC: ER 11:25
DX: M54.50 Low back pain, unspecified (principal); G43.909 Migraine, unspecified, not intractable, without status migrainosus; F32.A Depression, unspecified; F12.90 Cannabis use, unspecified, uncomplicated; F15.90 Other stimulant use, unspecified, uncomplicated; Z91.030 Bee allergy status; Z79.899 Other long term (current) drug therapy; Z72.89 Other problems related to lifestyle
CPT/HCPCS: 81001; 81025; 99283